=== PATIENT | male | born 1985 | race Caucasian/White ===

== ENCOUNTER 2020-05-01 18:01 | Emergency (ER) | payer MEDICAID ==
[~2020-05-01] VITALS: Ht 157.5 cm; Wt 90.7 kg
[2020-05-01 18:39] VITALS: BP 122/80
--- NOTE | 2020-05-01 18:48 | NUR ---
TENT1
--- NOTE | 2020-05-01 18:58 | NUR ---
C/O LOWER BACK PAIN X 4 DAYS. DENIES S/S OF COVID. PT HAD COVID + 04/05/20. PMH: DENIES
[2020-05-01] MEDS ORDERED: KETOROLAC 60 MG/2 ML VIAL IM ONE (19:10)
--- NOTE | 2020-05-01 19:22 | NUR ---
PA EVALUATING PT.
--- NOTE | 2020-05-01 19:57 | NUR ---
Patient discharged with v/s stable. Written and verbal after care instructions given and explained. Patient alert, oriented and verbalized understanding of instructions. Ambulatory with steady gait. All questions addressed prior to discharge. ID band removed. Patient advised to follow up with PMD. Rx of BACTRIM, AND TYLENOL WITH CODEINE. given. Patient educated on indication of medication including possible reaction and side effects. Opportunity to ask questions provided and answered.
== END 2020-05-01 19:58 | disposition home or self-care (01) ==
LOC: MED 18:01
DX: N39.0 Urinary tract infection, site not specified (principal)
CPT/HCPCS: 81002; 96372; 99283; J1885

== ENCOUNTER 2020-06-07 17:09 | Emergency (ER) | payer MEDICAID ==
[~2020-06-07] VITALS: Ht 167.6 cm; Wt 92.1 kg
[2020-06-07 17:13] VITALS: BP 136/77
--- NOTE | 2020-06-07 17:15 | NUR ---
PT AMBULATED TO BED 8 WITH STEADY GAIT
--- NOTE | 2020-06-07 17:24 | NUR ---
35 Y/O MALE C/O LOWER BACK PAIN X3 WEEKS. PT STATES PAIN IS 9/10 NONRADIAITNG AND DESCRIBES IT "HOT AND PRESSURE" AND IS WORSE WHILE LAYING DOWN. PT DENIES TAKING ANYTHING FOR PAIN TODAY. PT WAS SEEN HERE LAST MONTH FOR UTI. PT DISCHARGED WITH RX OF BACTRIM & TYLENOL. PT STATES THAT THE PAIN CAME BACK DAYS AFTER FINISHING THEM. PT STATES NO PAIN/BURNING OR DIFFICULTY URINATING OR DEFECATING. PT DENIES N/V/SOB. PT IS A&O X4 WITH EVEN AND UNLABORED RESPIRATIONS. PMH: DENIES NKA
--- NOTE | 2020-06-07 17:47 | NUR ---
DR PAGE AT PT BEDSIDE FOR FURTHER EVALUATION
[2020-06-07] MEDS ORDERED: KETOROLAC 30 MG/ML VIAL IM ONE (18:05)
--- NOTE | 2020-06-07 18:07 | NUR ---
[employer] technician took pt to XR via W/C.
--- NOTE | 2020-06-07 18:15 | NUR ---
Pt to ER bed 8 via W/C with fiber technician.
--- NOTE | 2020-06-07 19:14 | NUR ---
RECIVED REPORT FROM ANGELINA CLINTON. CONTINUATION OF CARE.
--- NOTE | 2020-06-07 19:14 | NUR ---
GAVE REPORT TO DYLLAN CLINTON. TRANSFER OF CARE AT THIS TIME.
--- NOTE | 2020-06-07 19:15 | NUR ---
Deja calzada in [facility] - 06/07/20 at 1916 by [email or web address] GAVE REPORT TO DYLLAN DUNN TRANSFER OF CARE AT THIS TIME.
[2020-06-07 19:22] LABS: APPEARANCE,URINE CLEAR (CLEAR); BILIRUBIN,URINE NEGATIVE (NEGATIVE); BLOOD, URINE NEGATIVE (NEGATIVE); COLOR,URINE YELLOW (YELLOW); LEUKOCYTE ESTERASE ,URINE NEGATIVE (NEGATIVE); NITRITE, URINE NEGATIVE (NEGATIVE); UGLUCOSE NEGATIVE (NEGATIVE)
--- NOTE | 2020-06-07 19:39 | NUR ---
ERMD AT BEDSIDE GOING OVER TEST RESULTS.
[2020-06-07 19:50] VITALS: BP 132/72
--- NOTE | 2020-06-07 19:50 | NUR ---
Patient discharged with v/s stable. Written and verbal after care instructions given and explained. Patient alert, oriented and verbalized understanding of instructions. Ambulatory with steady gait. All questions addressed prior to discharge. ID band removed. Patient advised to follow up with PMD. Rx of LIDODERM, NAPROSYN, VALIUM given. Patient educated on indication of medication including possible reaction and side effects. Opportunity to ask questions provided and answered.
== END 2020-06-07 19:50 | disposition home or self-care (01) ==
LOC: MED 17:09
DX: M54.5 Low back pain (principal)
CPT/HCPCS: 72100; 81003; 96372; 99284; J1885

== ENCOUNTER 2023-05-14 18:25 | Emergency (ER) | payer MEDICAID ==
[~2023-05-14] VITALS: Ht 167.6 cm; Wt 81.6 kg
[2023-05-14 19:00] VITALS: BP 153/87; PULSE 78; RESP 18; TEMP 98.6; O2SAT 98
[2023-05-14 20:31] VITALS: TEMP 98.6
[2023-05-14 21:05] LABS: BASOPHILS % (AUTO) 0.5 % (0.0-2.0); EOSINOPHILS # (AUTO) 0.3 K/uL (0-0.4); EOSINOPHILS % (AUTO) 2.6 % (0.0-4.0); HEMATOCRIT 44.7 % (36-52); HEMOGLOBIN 15.4 g/dL (12.0-18.0); LYMPHOCYTES # (AUTO) 3.1 K/uL (2.0-11.5); LYMPHOCYTES % (AUTO) 31.8 % (20.5-51.1); MEAN CORPUSCULAR HEMOGLOBIN 29 pg (27-31); MEAN CORPUSCULAR HGB CONC 35 g/dL (33-37); MEAN CORPUSCULAR VOLUME 84.5 fL (80-94); MONOCYTES # (AUTO) 0.8 K/uL (0.8-1.0); MONOCYTES % (AUTO) 8.5 % (1.7-9.3); NEUTROPHILS # (AUTO) 5.5 K/uL (1.8-7.7); NEUTROPHILS % (AUTO) 56.6 % (42.2-75.2); PLATELET COUNT (AUTO) 261 K/uL (140-450); RED BLOOD CELL COUNT(AUTO) 5.29 MIL/uL (4.20-6.10); RED CELL DISTRIBUTION WIDTH 12.8 % (11.6-13.7); WHITE BLOOD COUNT (AUTO) 9.8 K/uL (4.8-10.8)
[2023-05-14 21:11] LABS: ANION GAP 10.9 (8-16); CALCIUM 8.8 mg/dL (8.5-10.1); CARBON DIOXIDE 27.7 mmol/L (21-32); CREATININE 0.8 mg/dL (0.6-1.3); POTASSIUM 3.6 mmol/L (3.5-5.1)
[2023-05-14 21:25] LABS: FREE T4 (FREE THYROXINE) 0.86 ng/dL (0.76-1.46); THYROID STIMULATING HORMONE 5.18 uIU/mL (0.34-3.74)
[2023-05-14] MEDS ORDERED: CYCL-711 PO (21:37)
[2023-05-14] MEDS ORDERED: IBUP-2213 PO (21:37)
[2023-05-14 21:53] VITALS: BP 132/69; PULSE 69; RESP 13; O2SAT 99
== END 2023-05-14 21:53 | disposition home or self-care (01) ==
LOC: MED 18:25
DX: R00.2 Palpitations (principal); E03.8 Other specified hypothyroidism; Z20.822 Contact with and (suspected) exposure to COVID-19; Z79.899 Other long term (current) drug therapy; Z79.1 Long term (current) use of non-steroidal anti-inflammatories (NSAID)
CPT/HCPCS: 36415; 71045; 80048; 84439; 84443; 85025; 87426; 93005; 99285; Q0092; 81025